=== PATIENT | female | born 2005 | race Caucasian/White ===

== ENCOUNTER 2025-02-24 19:25 | Emergency (ER) | payer BC, MEDICAID, SELFPAY ==
[2025-02-24 19:27] VITALS: BMI 40.6
[2025-02-24 19:37] VITALS: BP 111/73; PULSE 129; RESP 19; TEMP 37.4; O2SAT 95
[2025-02-24] MEDS: DEXAMETHASONE SOD PHOS INJ 10 MG/ML VIAL IM (20:12)
[2025-02-24 20:13] VITALS: PULSE 123; RESP 20; O2SAT 98
[2025-02-24] MEDS: ALBUTEROL/IPRATROPIUM (Duoneb) RT SOL 3 ML NEBU INH (20:13)
[2025-02-24] MEDS: ONDANSETRON ODT 4 MG TABRAP PO (20:13)
[2025-02-24 20:58] LABS: Collection Type, Urine Voided
[2025-02-24 21:11] LABS: HCG Qualitative,Urine Negative
[2025-02-24 21:16] LABS: Bilirubin,Urine 1+ (Negative); Blood,Urine Trace (Negative); Cellular Casts,Urine 2 /hpf (0-1); Clarity,Urine Turbid (Clear/Hazy); Color,Urine Yellow (Lt Yel-Yel); Glucose, Urine Trace (Negative); Hyaline Casts,Urine 1 /hpf (0-1); Ketones,Urine 1+ (Negative); Leukocyte Esterase,Urine Positive (Negative); Nitrite,Urine Negative (Negative); Protein,Urine 2+ (Neg - Trace); RBC,Urine 1 /hpf (0-3); Squamous Epithelial Cell,Urine 12 /hpf (0-5); WBC,Urine 77 /hpf (0-5)
--- NOTE | 2025-02-24 22:07 | EDNOTE_ITS ---
Nausea/Vomit./Diarrhea-RME/HPI General Chief complaint: Nausea/Vomiting/Diarrhea Stated complaint: NV CHEST PAIN Time Seen by Provider: 02/24/25 19:32 Arrival date/time: 02/24/25 19:25 Is a case of a 19-year-old female who came in in the emergency room due to fever cough and congestion for 1 week patient states that she has pleuritic chest pain but no shortness of breath no wheezing patient also noted to have vomiting on and off for 1 week denies denies any diarrhea or abdominal pain Mode of arrival: ambulatory Limitations: no limitations Related Data Home Medications ?Medication ?Instructions ?Recorded ?Confirmed prenat.vits,dyllan,[id number] 1 tab PO QDAY 08/25/22 10/25/22 ibuprofen 600 mg tablet 600 mg PO Q6H PRN Pain 10/2510/25/22 Previous Rx's ?Medication ?Instructions ?Recorded albuterol sulfate 90 mcg/actuation 1 inh inhalation QI D PRN shortness 02/24/25 aerosol inhaler (Ventolin HFA) of breath or wheezing # 8.5 grams cephalexin 500 mg capsule 500 mg PO QID 10 days #40 ca ps 02/24/25 ondansetron 4 mg disintegrating 4 mg PO Q8H PRN nausea and 02/24/25 tablet vomiting #20 tabs prednisone 20 mg tablet See Taper PO QDAY 5 days #5 tabs 02/24/25 promethazine 6.25 mg/5 mL oral 6.25 mg (5 mL) PO TID P RN cough 02/24/25 syrup #120 mL Allergies Allergy/AdvReac Type Severity Reaction Status Date / Time No Known Allergies Allergy Verified 02/24/25 19:33 Review of Systems Review of Systems Systems Reviewed: All systems reviewed, normal except as documented Constitutional Constitutional: Reports system reviewed and no additional complaints, except as documented, Denies chills and Reports fever(s) ENT Ears, Nose, Mouth, and Throat: Reports system reviewed and no additional complaints, except as documented, Reports as per HPI, Denies dysphagia, Reports nasal congestion, Reports nasal discharge and Denies odynophagia Cardiovascular Cardiovascular: Denies dyspnea, Denies dyspnea on exertion and Reports other (Pleuritic chest pain) Respiratory Respiratory: Reports system reviewed and no additional complaints, except as documented, Reports cough, Denies dyspnea and Denies dyspnea on exertion Gastrointestinal Gastrointestinal: Reports system reviewed and no additional complaints, except as documented, Reports as per HPI, Denies abdominal pain, Denies belching, Denies bloating, Denies change in bowel habits, Denies change in stool character, Denies coffee ground emesis, Denies constipation, Denies cramping, Denies diarrhea, Denies dyspepsia, Denies dysphagia, Denies early satiety, Denies excessive flatus, Denies fecal incontinence, Denies heartburn, Denies hematemesis, Denies hematochezia, Denies loose stools, Denies melena, Reports nausea, Denies odynophagia, Denies tenesmus and Reports vomiting Musculoskeletal Musculoskeletal: Reports system reviewed and no additional complaints, except as documented Neurologic Neurologic: Reports system reviewed and no additional complaints, except as documented Past Medical History Past Medical History NEUROLOGIC: Positive Neurological Disorders and Migraine; Negative Seizures CARDIAC: Negative Cardiac Disorders, Congestive Heart Failure or Hypertension RESPIRATORY: Positive Asthma; Negative Chronic Obstructive Pulmonary Disease (COPD) GASTROINTESTINAL: Positive Gastrointestinal Disorders and Gall Bladder Disease GENITOURINARY: Negative Genitourinary Disorders or Renal Disease REPRODUCTIVE: Positive Previous Pregnancies; Negative Pelvic Inflammatory Disease MUSCULOSKELETAL: Positive Musculoskeletal Disorders and Fractures (ankle); Negative Scoliosis ENDOCRINE: Negative Endocrine Disorders, Diabetes Mellitus Type 1 or Diabetes Mellitus Type 2 HEMATOLOGIC: Positive Blood Disorders and Anemia; Negative Leukemia, Hemophilia, Thalassemia, Sickle Cell Disease or Clotting Problems PSYCHO/SOCIAL: Positive Depression and Anxiety OTHER HISTORY: Negative Autoimmune Disease, Blood Transfusions, Blood Transfusion Reaction, Anesthesia Reactions, Organ Transplant, MRSA, Clostridium Difficile or Cancer Family History FAMILY HISTORY: Negative Family Psychiatric Problems, Family Respiratory Disorders, Family Cardiac Disorders, Family Gastrointestinal Problems, Family Cancer, Family Surgery or Family Anesthesia Reaction Surgical History SURGICAL: Positive Ear Surgery, Oral Surgery, Tonsillectomy and Section; Negative Cardiac Surgery, Endocrine Surgery, Abdominal Surgery, Nephrectomy, Joint Replacement, Neurologic Surgery or Organ Transplant Social History SMOKING STATUS: Never smoker ED Exam General Limitations: Present no limitations General appearance: Present alert and in no apparent distress; Absent appears intoxicated or anxious Head Head exam: Present atraumatic, normocephalic and normal inspection Eye Eye exam: Present normal appearance, PERRL and EOMI ENT ENT exam: Present normal exam, normal oropharynx, mucous membranes moist and TM's normal bilaterally Neck Neck exam: Present normal inspection, full ROM and trachea midline; Absent tenderness, meningismus or lymphadenopathy Chest Chest inspection: Present normal inspection and symmetric chest wall rise; Absent tenderness Respiratory Respiratory exam: Present normal lung sounds bilaterally and wheezes; Absent respiratory distress, stridor, accessory muscle use or prolonged expiratory phase Cardiovascular Cardiovascular exam: Present regular rate, normal rhythm and normal heart sounds; Absent bradycardia, tachycardia, irregular rhythm, systolic murmur or diastolic murmur Abdominal Exam Abdominal exam: Present soft and normal bowel sounds; Absent distention, tenderness, guarding, rebound, rigidity, diminished bowel sounds, hyperactive bowel sounds or organomegaly Extremities Exam Extremities exam: Present normal inspection and full ROM Back Exam Back exam: Present normal inspection and full ROM Neurological Exam Neurological exam: Present alert, oriented X3, CN II-XII intact, normal gait and reflexes normal; Absent motor sensory deficit Psychiatric Psychiatric exam: Present normal affect and normal mood Skin Skin exam: Present warm, dry, intact and normal color Course Quality Measures none Orders Category Date Time Status HCG Qualitative,Urine Stat Lab 02/24/25 20:25 Completed Urinalysis Stat Lab 02/24/25 20:25 Completed Albuterol/Ipratr Rt Sonia [Duoneb Rt Sonia] Med 02/24/25 19:47 Discontinued 3 ml INH X1 ONE Dexamethasone Inj [Decadron Inj] Med 02/24/25 19:47 Discontinued 10 mg IM X1 ONE Ondansetron Odt [Zofran Odt] Med 02/24/25 19:47 Discontinued 4 mg PO X1 ONE Vital Signs Vital signs: Vital Signs Temperature 99.3 F 02/24/25 19:37 Pulse Rate 129 H 02/24/25 19:37 Respiratory Rate 19 02/24/25 19:37 Blood Pressure 111/73 02/24/25 19:37 Pulse Oximetry (%) 95 02/24/25 19:37 Oxygen Delivery Method Room Air 02/24/25 19:37 Patient is afebrile mild tachycardia patient was given Zofran for vomiting oral fluid challenge after had a 1 L of water patient heart rate was rechecked and noted to be 99 nontachypneic BP stable not hypoxic 95% Nausea/Vomiting/Diarrhea MDM Narrative MDM Narrative:: Is a case of a 19-year-old female who came in in the emergency room due to fever cough and congestion for 1 week patient states that she has pleuritic chest pain but no shortness of breath no wheezing patient also noted to have vomiting on and off for 1 week denies denies any diarrhea or abdominal pain patient is awake alert oriented not in distress not toxic looking patient is tachycardic at 129 patient has no signs and symptoms of dehydration excellent skin turgor after giving Zofran oral fluid challenge was given patient tolerated 1 L of water patient heart rate was rechecked and noted to be 99 patient is not tachypneic patient is afebrile patient BP is stable lung sounds noted wheezing both lower lung field no crackles no rales no retraction no stridor patient heart normal rate regular rhythm patient states that the pleuritic chest pain was 3 days ago patient was given a breathing treatment of DuoNeb and dexamethasone which patient condition markedly improved patient abdominal exam is benign nonsurgical no guarding no rebound no rigidity patient has no signs and symptoms of sepsis abdominal exam is benign nonsurgical no signs and symptoms of dehydration no signs and symptoms of hypoxia patient urinalysis showed positive for urinary tract infection patient is not at this point patient will be discharged home with stable condition she was prescribed with cephalexin to be taken for 10 days for urinary tract infection patient was given a steroid cough medication and inhaler for acute bronchitis patient was advised to follow-up with primary care physician in 2 days for reevaluation increase water intake patient was advised to take Pedialyte Gatorade for every bouts of vomiting patient understood very well the discharge instruction Patient was discharged with comfortable condition walking with stable gait. Patient verbalized no further complains explained diagnosis and answered patient question. Patient is comfortable with the proposed management plan including the need to follow up with his/her primary care physician and any specialist if applicable Discussed patient for any urgent condition or worsening sx, He/She needed to go to emergency room immediately or call 911. Patient acknowledge the responsibility to follow up as instructed and to monitor her/his symptoms. For any persistence of the symptoms for more than 3-5 days return precaution advised. Discussed the result of the test and was given printed discharge instruction Patient data External records reviewed:: [facility] previous records Clinical information provided by:: patient Social determinants that could affect healthcare access:: none Patient has the following chronic illnesses:: None How is presenting disease/condition affected by chronic disease/condition?: no chronic disease Evaluation data The following diagnostics were reviewed and interpreted by me:: lab results Lab and/or radiology exams considered but not ordered:: Reviewed Interpretation Summary: Reviewed Medications / Prescriptions Medications / Prescriptions considered but not ordered:: Given Medication administrations:: Medication Administration History Discontinued Medications Albuterol/Ipratropium (Albuterol/Ipratropium (Duoneb) Rt Sonia 3 Ml Nebu) 3 ml INH X1 ONE Stop: 02/24/25 19:48 Last Admin: 02/24/25 20:13 Dose: 3 ml Documented By: GILMA Dexamethasone Sodium Phosphate (Dexamethasone Sod Phos Inj 10 Mg/Ml Vial) 10 mg IM X1 ONE Stop: 02/24/25 19:48 Last Admin: 02/24/25 20:12 Dose: 10 mg Documented By: ИРИНА Ondansetron HCl (Ondansetron Odt 4 Mg Tabrap) 4 mg PO X1 ONE; Protocol Stop: 02/24/25 19:48 Last Admin: 02/24/25 20:13 Dose: 4 mg Documented By: ИРИНА Given Consultations Consultation(s) initiated? (list below): No Diagnosis Nausea Differential Diagnosis: traveler's diarrhea, food poisoning and ga stroenteritis Most likely diagnosis given after review of the tests above:: Vomiting urinary tract infection acute bronchitis Admission Indicated Admission indicated?: not indicated Explain why admission is indicated or not indicated:: Not indicated Admission Request Was there a request for admission?: No Admission Attestation Admission request attestation: Not indicated Disposition Plan Disposition Plan: Discharge Discharge Attestation Discharge Attestation: The patient and all family members were given an opportunity to ask questions and understood the discharge instructions. Discharge instructions specifically effects, indications for sooner follow up or return to the emergency department, and the expected course of current diagnosis. Patient condition: Stable Discharge Plan Plan Patient Disposition: HOME (Self Care) Prescriptions/Referrals Prescriptions/Med Rec: New cephalexin 500 mg capsule 500 mg PO QID 10 Days Qty: 40 0RF ondansetron 4 mg tablet,disintegrating 4 mg PO Q8H PRN (Reason: nausea and vomiting) Qty: 20 0RF prednisone 20 mg tablet See Taper PO QDAY 5 Days Qty: 5 0RF Taper: Prednisone Taper 20 mg DAILY for 2 Days and 0 Hour 10 mg DAILY for 2 Days and 0 Hour 5 mg DAILY for 7 Days and 0 Hour albuterol sulfate [Ventolin HFA] 90 mcg/actuation HFA aerosol inhaler 1 inh inhalation QID PRN (Reason: shortness of breath or wheezing) Qty: 8.5 0RF promethazine 6.25 mg/5 mL syrup 6.25 mg PO TID PRN (Reason: cough) Qty: 120 0RF Rx Instructions: 3 doses during day; last dose no later than 4 hr before bedtime No Action ibuprofen 600 mg Tablet 600 mg PO Q6H PRN (Reason: Pain) prenat.vits,dyllan,[id number] Tablet 1 tab PO QDAY Referrals: No Primary/Family,Physician [Primary Care Provider] - In 1 week Problem List Clinical Impression: Acute bronchitis, Urinary tract infection, Vomiting Patient/Caregiver Discharge Instructions Education Materials: Acute Bronchitis, Understanding Urinary Tract ..., ED Vomiting (Adult) Additional Instructions: Follow-up with your primary care physician in 2 days for reevaluation worsening symptoms recurrence of the symptoms or any emergent concern call 911 or go to the nearest emergency room increase water intake keep hydrated Pedialyte Gatorade for every bouts of vomiting Print Language: Slovenian Stand Alone Forms: Maribel Award Info., Patient Portal Info Letter PA/CANOPY INSPECTOR Supervising Physician PA/CANOPY INSPECTOR Supervising Physician: dr law
== END 2025-02-24 22:48 | disposition home or self-care (01) ==
PROVIDERS: Nurse Practitioner Family; Emergency Provider Emergency Medicine
DX: J20.9 Acute bronchitis, unspecified (principal); N39.0 Urinary tract infection, site not specified; R11.10 Vomiting, unspecified
CPT/HCPCS: 81001; 81025; 94640; 96372; 99283; A9270; J1100; Q0162